=== PATIENT | female | born 1995 | race Caucasian/White ===

== ENCOUNTER → 2016-10-13 | Outpatient (CLI) | payer MEDICAID ==
[~2016-10-13] MED LIST: BUSPAR 5MG TAB5 MG PO; DOXEPIN 25MG CA25 MG PO; FLEXERIL10 MG PO; MOBIC7.5 MG PO; PROTONIX 40MG T40 MG PO; SERTRALINE 50MG50 MG PO
[2016-10-13 11:37] LABS: LYMPH # 1.7 K/mm3 (0.7-4.5); LYMPH % 20.3 % (10-50.0)
[2016-10-13 12:41] LABS: ABO BLOOD TYPE O; RH BLOOD TYPE NEGATIVE
[2016-10-14 07:39] LABS: HBsAg Screen Negative (Negative); HIV Screen 4th Generation wRfx Non Reactive (Non Reactive); Rapid Plasma Reagin, Quant Non Reactive (NonRea<1:1); Rubella Antibodies, IgG 1.49 index (Immune >0.99)
== END ==
LOC: LAB 10:51
PROVIDERS: Nurse Practitioner Obstetrics & Gynecology
DX: Z34.80 Encounter for supervision of other normal pregnancy, unspecified trimester (principal)
CPT/HCPCS: G0432

== ENCOUNTER 2017-01-19 04:05 | Emergency (ER) | payer MEDICAID ==
[~2017-01-19] VITALS: Ht 172.7 cm; Wt 80.3 kg
--- NOTE | 2017-01-19 04:23 | Emergency Room Report ---
History of Present Illness Time Seen by 0420 Presenting Problem in Triage Pt arrived:Walked Presenting Problem:C/O MIGRAINE HEADACHE, C/O NAUSEA Onset of symptoms date/time:01/17/17/ or onset unknown for:MEDICAL HX UNKNOWN Treatment Prior to Arrival: TYLENOL AT 1999. [employer] Provided by:SELF Sepsis Risk Assessment: Temp: 98.2 B/P: 121/75 MAP: 90 Pulse: 91 Resp: 18 Recent fever? N Clinical Suspician of Infection? N Mental Status: 1 - Regular (Normal Baseline) Sepsis Risk:Low Sepsis Risk Have you (or family members/close friends) recently traveled outside the [place]? N If Yes, where/when: Have you had exposure to infectious disease within the past month? N TB? Other? Specify: Source patient, RN notes reviewed, family, old records Exam Limitations no limitations Comment 2 day hx of lt sided marques assoc with nausea with no rash or trauma and has had these marques in past - usually rx with nonphar measures Cardiac Chest Pain Chest pain indicative of cardiac No Timing/Duration this evening Severity moderate ALLERGIES Coded Allergies: zolpidem (From AMBIEN) (HALLUCINATIONS 03/21/16) History Medical History General CAD? No Angina: No GA: No Hypertension? No Hyperlipidemia? No CHF? No DVT? No PE? No COPD? No Asthma? No Anemia? No GERD? No Gastric ulcers? No GI Bleed? No Hernia? No Thyroid Problems? No Hypothyroidism? No CVA? No Seizures? No Diabetes? No End Stage Renal Disease? No UTI? No Stones? No BPH? No GB Disease: No Nephritic Syndrome? No Asplenia? No Hepatitis? No Sickle Cell Disease? No Arthritis? No Migraines? No Cataracts? No Glaucoma? No MRSA? No HIV? No TB? No Anxiety? No Depression? No Cancer? No More? 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 Respiratory denies cough, denies shortness of breath, denies wheezing Cardiovascular denies chest pain, denies palpitations, denies syncope Gastrointestinal denies abdominal pain, nausea, denies vomiting Genitourinary denies: dysuria, frequency, hesitancy, hematuria. Musculoskeletal denies back pain, denies joint pain, denies joint swelling, denies neck pain Skin denies rash Psychiatric/Neurological see HPI, headache, denies seizure Physical Exam Vital Signs Vital Signs Date Time Temp Pulse Resp B/P Pulse O2 O2 Flow FiO2 Ox Delivery Rate 01/19 457 91 18 105/59 97 01/19 0412 98.2 91 18 121/75 97 - WBC >12,000 or <4,000 or 10% bands? 2 or more SIRS Criteria Met? B/P:121/75 MAP:90 Creatinine >2.0? UA output<0.5ml/kg/hr for 2 hrs? Platelet count >100,000? Lactate >2.0mmol/1? INR >1.2 or PTT > than 60 sec? Evidence of Organ Dysfunction? Provider documented clinical suspician of infection? N Sepsis Criteria Count: 1 Sepsis Risk: Low Sepsis Risk General Appearance no apparent distress Eye Exam - bilateral eye PERRL, bilateral eye EOMI Ear, Nose, Throat normal ENT inspection Neck supple Respiratory Status No: respiratory distress. 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 No Results/Orders Current Medication Orders Sig/Deonna Start time Last Medication Dose Route Stop Time Status Admin Sodium Chloride 25 ML .STK-MED ONE 01/19 433 DC IV Promethazine HCl 0 .STK-MED ONE 01/20 432 DC .ROUTE Diphenhydramine HCl 0 .STK-MED ONE 01/19 431 DC .ROUTE Diphenhydramine HCl 25 MG ONCE ONE 01/19 430 DC 01/19 IV 01/19 431 0432 Promethazine HCl 12.5 MG ONCE ONE 01/19 430 DC 01/19 IV 01/19 431 0434 Sodium Chloride 1,000 ML .Q1H1M 01/19 430 AC 01/19 IV 01/19 0530 0419 Sodium Chloride 10 ML PRN PRN 01/19 0430 AC IV 01/20 0418 Sodium Chloride 25 ML ONCE ONE 01/19 430 DC 01/19 IV 01/19 0444 0434 Sodium Chloride 1,000 ML .STK-MED ONE 01/20 412 DC IV Departure Departure Time of Disposition 0518 Disposition DC Home or Self Care(routine) Clinical Impression Primary Impression: Headache Qualifiers: Headache type: unspecified Headache chronicity pattern: acute headache Intractability: not intractable Qualified Code: R51 - Headache Secondary Impressions: Qualifiers: Weeks of gestation: 18 weeks Qualified Code: Z3A.18 - 18 weeks gestation of Condition STABLE Referrals Raul HANCOCK,Shaggy Quiñones discussed with dr marie Patient Instructions DI for Headache Additional Instructions call pcp or ob today for follow up Discharge Counseling Counseled pt/family regarding diagnosis, test results, medications/RX, follow up needs ED Critical Care Critical Care No at 0520
--- NOTE | 2017-01-19 04:23 | Emergency Room Report ---
History of Present Illness Time Seen by 0420 Presenting Problem in Triage Pt arrived:Walked Presenting Problem:C/O MIGRAINE HEADACHE, C/O NAUSEA Onset of symptoms date/time:01/17/17/ or onset unknown for:MEDICAL HX UNKNOWN Treatment Prior to Arrival: TYLENOL AT 1999. [employer] Provided by:SELF Sepsis Risk Assessment: Temp: 98.2 B/P: 121/75 MAP: 90 Pulse: 91 Resp: 18 Recent fever? N Clinical Suspician of Infection? N Mental Status: 1 - Regular (Normal Baseline) Sepsis Risk:Low Sepsis Risk Have you (or family members/close friends) recently traveled outside the [place]? N If Yes, where/when: Have you had exposure to infectious disease within the past month? N TB? Other? Specify: Source patient, RN notes reviewed, family, old records Exam Limitations no limitations Comment 2 day hx of lt sided marques assoc with nausea with no rash or trauma and has had these marques in past - usually rx with nonphar measures Cardiac Chest Pain Chest pain indicative of cardiac No Timing/Duration this evening Severity moderate ALLERGIES Coded Allergies: zolpidem (From AMBIEN) (HALLUCINATIONS 03/21/16) History Medical History General CAD? No Angina: No [place]: No Hypertension? No Hyperlipidemia? No CHF? No DVT? No PE? No COPD? No Asthma? No Anemia? No GERD? No Gastric ulcers? No GI Bleed? No Hernia? No Thyroid Problems? No Hypothyroidism? No CVA? No Seizures? No Diabetes? No End Stage Renal Disease? No UTI? No Stones? No BPH? No GB Disease: No Nephritic Syndrome? No Asplenia? No Hepatitis? No Sickle Cell Disease? No Arthritis? No Migraines? No Cataracts? No Glaucoma? No MRSA? No HIV? No TB? No Anxiety? No Depression? No Cancer? No More? 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 Respiratory denies cough, denies shortness of breath, denies wheezing Cardiovascular denies chest pain, denies palpitations, denies syncope Gastrointestinal denies abdominal pain, nausea, denies vomiting Genitourinary denies: dysuria, frequency, hesitancy, hematuria. Musculoskeletal denies back pain, denies joint pain, denies joint swelling, denies neck pain Skin denies rash Psychiatric/Neurological see HPI, headache, denies seizure Physical Exam Vital Signs Vital Signs Date Time Temp Pulse Resp B/P Pulse O2 O2 Flow FiO2 Ox Delivery Rate 01/19 457 91 18 105/59 97 01/19 0412 98.2 91 18 121/75 97 - WBC >12,000 or <4,000 or 10% bands? 2 or more SIRS Criteria Met? B/P:121/75 MAP:90 Creatinine >2.0? UA output<0.5ml/kg/hr for 2 hrs? Platelet count >100,000? Lactate >2.0mmol/1? INR >1.2 or PTT > than 60 sec? Evidence of Organ Dysfunction? Provider documented clinical suspician of infection? N Sepsis Criteria Count: 1 Sepsis Risk: Low Sepsis Risk General Appearance no apparent distress Eye Exam - bilateral eye PERRL, bilateral eye EOMI Ear, Nose, Throat normal ENT inspection Neck supple Respiratory Status No: respiratory distress. 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 No Results/Orders Current Medication Orders Sig/Deonna Start time Last Medication Dose Route Stop Time Status Admin Sodium Chloride 25 ML .STK-MED ONE 01/19 433 DC IV Promethazine HCl 0 .STK-MED ONE 01/20 432 DC .ROUTE Diphenhydramine HCl 0 .STK-MED ONE 01/19 431 DC .ROUTE Diphenhydramine HCl 25 MG ONCE ONE 01/19 430 DC 01/19 IV 01/19 431 0432 Promethazine HCl 12.5 MG ONCE ONE 01/19 430 DC 01/19 IV 01/19 431 0434 Sodium Chloride 1,000 ML .Q1H1M 01/19 430 AC 01/19 IV 01/19 0530 0419 Sodium Chloride 10 ML PRN PRN 01/19 0430 AC IV 01/20 0418 Sodium Chloride 25 ML ONCE ONE 01/19 430 DC 01/19 IV 01/19 0444 0434 Sodium Chloride 1,000 ML .STK-MED ONE 01/20 412 DC IV Departure Departure Time of Disposition 0518 Disposition DC Home or Self Care(routine) Clinical Impression Primary Impression: Headache Qualifiers: Headache type: unspecified Headache chronicity pattern: acute headache Intractability: not intractable Qualified Code: R51 - Headache Secondary Impressions: Qualifiers: Weeks of gestation: 18 weeks Qualified Code: Z3A.18 - 18 weeks gestation of Condition STABLE Referrals Raul HANCOCK,Shaggy Quiñones discussed with dr marie Patient Instructions DI for Headache Additional Instructions call pcp or ob today for follow up Discharge Counseling Counseled pt/family regarding diagnosis, test results, medications/RX, follow up needs ED Critical Care Critical Care No at 0520
[2017-01-19 05:20] VITALS: BP 105/59
== END 2017-01-19 05:24 | disposition home or self-care (01) ==
LOC: ER 04:05
DX: R51 Headache (principal); Z3A.18 18 weeks gestation of pregnancy; Z72.0 Tobacco use

== ENCOUNTER → 2017-05-27 | Outpatient (CLI) | payer MEDICAID ==
[~2017-05-27] MED LIST changes: +PANTOPRAZOLE SO40 MG PO; +PRENATAL PLUS1 TA1 PO
== END ==
LOC: LAB 15:36
DX: Z34.80 Encounter for supervision of other normal pregnancy, unspecified trimester (principal)

== ENCOUNTER → 2017-06-03 | Outpatient (CLI) | payer MEDICAID ==
--- NOTE | 2017-06-09 10:18 | RADIOLOGY REPORT PS360 ---
US BIOPHYSICAL PROFILE COMPARISON: Ultrasound for anatomy scan 01/29/2017 HISTORY: Suspected large fetus for gestational age TECHNIQUE: Transabdominal scanning FINDINGS: There is a single fetus in cephalic presentation. The cervix is closed and measures 2.4 cm. The BPD is 9.16 centers equaling 37 weeks and 2 days +/- 3 weeks and 2 days. Abdominal circumference is 36.87 cm equaling 40 weeks and 6 days, another measurement was obtained at 35.05 centers equaling 39 weeks 0 days. There is satisfactory amniotic fluid with the SAV measuring 13.28 cm. There is a three-vessel cord and 4 chamber heart. The placenta is fundal with anterior posterior components. The heart rate is 150 bpm. No gross abdomen is noted. The biophysical profile was 8 out of 8. IMPRESSION: Viable cephalic fetus estimated age at 38 weeks and 6 days with estimated weight of 8 pounds and 5 ounces +/- 19 ounces.
== END ==
LOC: RAD 15:05
DX: O36.63X0 Maternal care for excessive fetal growth, third trimester, not applicable or unspecified (principal)

== ENCOUNTER 2017-06-04 10:12 | Outpatient (CLI) | payer MEDICAID ==
[~2017-06-04] VITALS: Ht 177.8 cm; Wt 91.2 kg
[~2017-06-04 10:12] MED LIST changes: -PANTOPRAZOLE SO40 MG PO; -PRENATAL PLUS1 TA1 PO
[2017-06-04 10:42] VITALS: BP 119/70
[2017-06-04 10:44] LABS: URINE BILIRUBIN - DIPSTICK NEGATIVE (NEG); URINE BLOOD NEGATIVE (NEG)
[2017-06-04] MEDS ORDERED: PANTOPRAZOLE SO40 MG PO (10:47)
[2017-06-04] MEDS ORDERED: PRENATAL PLUS1 TA1 PO (10:48)
[2017-06-04 10:53] LABS: URINE SQUAMOUS CELLS 20-50 #/hpf (0-5)
== END 2017-06-04 12:29 | disposition home or self-care (01) ==
LOC: OBOUT 10:12 → OB 10:13 → OBOUT 12:29
PROVIDERS: Nurse Practitioner Obstetrics & Gynecology
DX: O26.93 Pregnancy related conditions, unspecified, third trimester (principal); Z3A.38 38 weeks gestation of pregnancy

== ENCOUNTER 2017-06-19 00:31 | Inpatient (IN) | payer MEDICAID ==
[~2017-06-19] VITALS: Ht 177.8 cm; Wt 93.9 kg
[~2017-06-19 00:31] MED LIST changes: +PANTOPRAZOLE SO40 MG PO; +PRENATAL PLUS1 TA1 PO
[2017-06-19 01:33] LABS: HEMOGLOBIN 12.6 g/dL (12.2-16.2); LYMPH # 3.4 K/mm3 (0.7-4.5); LYMPH % 19.5 % (10-50.0)
[2017-06-19 01:34] VITALS: BP 109/77
[2017-06-19 01:56] LABS: NEUTROPHILS 83 % (42-76)
[2017-06-19 02:16] LABS: ABO BLOOD TYPE O; RH BLOOD TYPE NEGATIVE
[2017-06-19 02:56] LABS: URINE BILIRUBIN - DIPSTICK NEGATIVE (NEG); URINE BLOOD TRACE-INTACT (NEG)
[2017-06-19 02:58] LABS: URINE RENAL CELLS OCC #/HPF
--- NOTE | 2017-06-19 05:26 | ACUTE CARE PROGRESS NOTE (QUA) ---
Progress Notes Subjective Date 06/19/17 Time 0524 Assessment/Plan This inpt stay is expected to cross 2 MNs from start of care Yes (OB delivery) Comments: This 21-year-old 2, para 1, AB 0 white female was admitted at 40 1/7 weeks at 0100 this morning in active labor. She was 5 cm dilated at the time. She has labored under labor epidural, which has worked well. Her amniotic sac ruptured spontaneously at 05 100 and she is now completely dilated and completely effaced with a presenting vertex at 0 station. She will begin pushing. at 0514
--- NOTE | 2017-06-19 06:16 | Delivery Note ---
Delivery note Delivery date: 06/19/17 Delivery time: 0600 Anesthesia: Epidural, FINA Yamilex Was labor medically induced? No Gestational age in weeks: 40 weeks Days: 1 day Delivery prior to 39 weeks? No Sex: male score at one minute: 9 at 5 minutes: 9 Type of suction: bulb AF: Clear Delivery procedure: Normal Delivery Delivery of placenta: spontaneous Clinical note This 21-year-old 2, now para 2, AB 0 white female was admitted at 40 1/7 weeks in active labor at 5 cm of dilatation. She labored under labor epidural, which worked well, and went steadily to completion, delivering spontaneously, without an episiotomy, at 0600 on 06/19/17. The baby's naso-and oropharynx were bulb suctioned, and the baby cried spontaneously on the perineum, as was delivered. The cord was clamped and cut, 3 vessels were noted to be within the cord, and cord blood was obtained. The cord pH was 7.41. The baby was handed into the arms of the attending RN, who assigned Apgars of 9 at 1 minute and 9 at 5 minutes to this 8 lbs. 12 oz., 21 inch male , born at 0600. The placenta delivered spontaneously, intact, at 0605, making the total time in labor 6 hours 5 minutes. The uterus was inspected and was felt to be clean, and was involuting well, with IV Pitocin running. There were no lacerations. The rectovaginal septum was intact at the close of the procedure. The patient tolerated the procedure well, and was recovered in excellent condition. The estimated blood loss was 350 mL. The patient's blood type is O Rh negative and she will be worked up for Rh immune globulin eligibility. Her rubella titer is immune. She plans to bottlefeed. at 0616
[2017-06-19 07:36] VITALS: BP 125/67
--- NOTE | 2017-06-19 09:46 | PHARMACY CLINIC NOTE ---
Patient Demographics Patient Demographics Admission date: 06/19/17 Date: 06/19/17 Time: 0945 Allergies Coded Allergies: zolpidem (From AMBIEN) (HALLUCINATIONS 03/21/16) HEIGHT- FT: 5 IN: 10.00 K.[id number] VTE General Information Labs: Laboratory Tests 06/19 011 Hematology Hgb (12.2 - 16.2 g/dL) 12.6 Hct (37.0 - 47.0 %) 37.4 Plt Count (142 - 424 K/mm3) 172 Disclaimer The following section includes nursing documentation that has been pulled in for pharmacy review. VTE prophylaxis [id number] VTE prophylaxis ordered? Yes Type of prophylaxis/treatment: LETI at 0945
[2017-06-19 23:13] VITALS: BP 119/82
[2017-06-20 05:46] LABS: HEMOGLOBIN 11.9 g/dL (12.2-16.2)
[2017-06-20 06:39] LABS: ABO BLOOD TYPE O; RH BLOOD TYPE NEGATIVE; RHOGAM LOT # RHOGAM INFORMATION
[2017-06-20 06:40] LABS: FETALSCREEN NEGATIVE (NEGATIVE)
[2017-06-20 08:00] VITALS: BP 119/66
--- NOTE | 2017-06-20 12:39 | ACUTE CARE PROGRESS NOTE (QUA) ---
Progress Notes Subjective Date 06/20/17 Time 1238 Note She is doing well and she is eating and drinking and ambulating. She is bottlefeeding. Her lochia is normal. Patient/family reports: feeling better, no complaints Objective Findings Last VS-Temp:97.9 B/P:119/66 Pulse:88 Resp:18 SaO2: Last weight lbs:207 oz:0 [id number] Method:Stated Laboratory Tests 06/20/17 0640: RhIG Dose Recommended RHOGAM RELEASE 06/20/17 0530: Hgb 11.9 L, Hct 35.7 L 06/20/17 0530: RBC Birgit Test NEGATIVE, Antibody Screen NEGATIVE, Miscellaneous Test NEGATIVE Exam General appearance: normal appearance, alert, awake, no acute distress Reviewed: vital signs, lab results Assessment/Plan Problem List 1. Normal delivery Patient condition Improving, Stable Plan: continue current care This inpt stay is expected to cross 2 MNs from start of care Yes (OB delivery) Comments: She is doing very well and we'll plan to send her home tomorrow. at 1232
--- NOTE | 2017-06-21 08:29 | Discharge Summary ---
Discharge Summary Admission date: 06/19/17 Discharge date: 06/21/17 Discharge diagnoses: Term , spontaneous vaginal delivery Clinical note: She is a 21-year-old 2 para 2 who was 39 weeks gestational age. She came in in active labor. Course in hospital: She arrived in active labor and progressed to full dilation. She delivered spontaneously a liveborn male child at 6:00 AM of June 19, 2017. Patient was a liveborn male child weighing 8 lbs. 12 oz. with Apgars of 9 at 1 minute and 9 at 5 minutes. She has done well and has remained afebrile throughout her hospitalization. She is eating and drinking and ambulating. She is bottlefeeding. She has O Rh negative blood and she did receive RhoGam. She is rubella immune and group B streptococcus negative. Laboratory Tests 06/19/17 0110: WBC 17.2, RBC 3.93, MCV 95.2, RDW 13.2, Plt Count 172, MPV 9.5, Gran % 74.0, Gran # 12.8, Total Counted 100, Lymphocytes % 19.5, Monocytes % 5.3, Eosinophils % 1.0, Basophils % 0.3, Neutrophils 83, Band Neutrophils 2, Lymphocytes (Manual) 14, Lymphocytes # 3.4, Monocytes (Manual) 1, Monocytes # 0.9, Eosinophils # 0.2, Basophils # 0.1, RBC/WBC/PLT Morphology NORMAL, Platelet Estimate NORMAL, Rouleaux SL., PUBS MCHC 33.8 06/19/17 0110: MCH 32.1 06/19/17 0230: Urine Color YELLOW, Urine Appearance SL CLOUDY, Urine pH 7.5, Ur Specific [place] 1.020, Urine Protein NEGATIVE, Urine Ketones NEGATIVE, Urine Blood TRACE -INTACT, Urine Nitrate NEGATIVE, Urine Bilirubin NEGATIVE, Urine Urobilinogen 0.2, Ur Leukocyte Esterase NEGATIVE, Urine RBC OCC, Urine Renal Cells OCC, Amorphous Sediment 4+, Urine Glucose NEGATIVE 06/19/17 0600: Cord Blood pH 7.41 06/20/17 0530: RBC Birgit Test NEGATIVE, Antibody Screen NEGATIVE, Miscellaneous Test NEGATIVE 06/20/17 0530: Hgb 11.9, Hct 35.7 06/20/17 0640: RhIG Dose Recommended RHOGAM RELEASE Plans for ongoing care: She is discharged home to follow-up with me in approximately 2 weeks' time. Discharge medications She'll continue with her vitamins and iron. She is just taking over-the -counter analgesics. DC/follow-up instructions She was given the usual instructions with respect to limiting her activity, driving and sexual activity. Condition at discharge Stable and improved at 0846
== END 2017-06-21 10:40 | disposition home or self-care (01) | DRG 775 ==
LOC: OBOUT 00:31 → OB 00:32 → OBOUT 00:54 → OB 00:55
PROVIDERS: Obstetrics & Gynecology
PROC: 10E0XZZ Delivery of Products of Conception, External Approach (ICD-10-PCS; principal; 2017-06-19)
DX: O80 Encounter for full-term uncomplicated delivery (principal); Z37.0 Single live birth; Z3A.40 40 weeks gestation of pregnancy
CPT/HCPCS: J2405; J2790